=== PATIENT | male | born 1960 | race Caucasian/White ===

== ENCOUNTER 2017-09-02 17:23 | Emergency (ER) | payer OTHER ==
[~2017-09-02] VITALS: Ht 180.3 cm; Wt 106.0 kg
[~2017-09-02 17:23] MED LIST: CHOLMIS5; KETO2%T TOP; ZOLO25TA PO
[2017-09-02 17:25] VITALS: BP 177/85; PULSE 86; RESP 16; TEMP 99.9; O2SAT 95
[2017-09-02] MEDS ORDERED: ZOLO100T PO (17:36)
[2017-09-02] MEDS ORDERED: TIZA4TAB PO (17:36)
[2017-09-02] MEDS ORDERED: STATIN PO (17:36)
[2017-09-02] MEDS ORDERED: HYDR-3583 PO (17:36)
[2017-09-02] MEDS ORDERED: RESP: ALBUTEROL 2.5 MG/IPRATROPIUM 0.5 MG NEB (SCH) INH ONE (17:45)
[2017-09-02] MEDS ORDERED: predniSONE 20 MG TAB PO ONE (17:45)
--- NOTE | 2017-09-02 18:18 | PD ---
HPI Chief Complaint: Cold / Flu Symptoms Time Seen by Provider: 17:44 Travel History International Travel<30 days: No Contact w/Intl Traveler<30days: No Traveled to known affect area: No History of Present Illness HPI 57-year-old male here with cough, fever, body aches 6 days. He reports fever of 102. Symptoms are improved with OTC Motrin. Severity is moderate. He reports his friend had similar symptoms. He did receive a flu shot this year. PFSH Past Medical History Hx Anticoagulant Therapy: No Asthma: Yes Anxiety: Yes Cardiovascular Problems: Yes (CHOL) High Cholesterol: Yes Diabetes: No Diminished Hearing: No Headaches: Yes Musculoskeletal: Yes (CHRONIC BACK PAIN) Psychiatric: Yes (O.C.D.) Immunizations Current: Yes Tetanus Vaccination: > 5 Years Influenza Vaccination: Yes Past Surgical History Genitourinary Surgery: Yes (BLADDER SURGERY CHILD) Tonsillectomy: Yes Social History Alcohol Use: Yes (RARELY) Tobacco Use: No Substance Use: No Allergies-Medications (Allergen,Severity, Reaction): Coded Allergies: No Known Allergies (Verified Allergy, Mild, 09/02/17) Reported Meds & Prescriptions Reported Meds & Active Scripts Active Levaquin (Levofloxacin) 500 Mg Tablet 500 Mg PO DAILY 7 Days Ventolin Hfa 18 GM Inh (Albuterol Sulfate) 90 Mcg/Act Aer 2 Puff INH Q4-6H PRN Prednisone 20 Mg Tab 40 Mg PO DAILY Take 40 mg (2 tablets) daily for 5 days Reported [Statin] 1 Tab PO DAILY Hydrocodone-Acetaminophen 10-325 mg Tab 1 Tab PO BID PRN Tizanidine (Tizanidine HCl) 4 Mg Tab 4 Mg PO TID Zoloft (Sertraline HCl) 100 Mg Tab 200 Mg PO DAILY Review of Systems Except as stated in HPI: all other systems reviewed are Neg General / Constitutional: Positive: Fever Eyes: No: Visual changes HENT: No: Headaches Cardiovascular: No: Chest Pain or Discomfort Respiratory: Positive: Cough Gastrointestinal: No: Abdominal Pain Genitourinary: No: Dysuria Musculoskeletal: Positive: Myalgias Skin: No Rash Neurologic: No: Weakness Physical Exam Narrative GENERAL: Alert male. Nontoxic appearing. SKIN: Warm and dry. HEAD: Normocephalic. EYES: No injection or drainage. NECK: Supple, trachea midline. No JVD or lymphadenopathy. No meningismus. CARDIOVASCULAR: Regular rate and rhythm . RESPIRATORY: Breath sounds equal bilaterally. No accessory muscle use. Expiratory wheezes with rhonchi. GASTROINTESTINAL: Abdomen soft, non-tender, nondistended. MUSCULOSKELETAL: No cyanosis, or edema. BACK: Nontender without obvious deformity. No CVA tenderness. Data Data Last Documented VS Vital Signs Date Time Temp Pulse Resp B/P (MAP) Pulse Ox O2 Delivery O2 Flow Rate FiO2 09/02/17 17:36 95 Room Air 09/02/17 17:25 99.9 86 16 177/85 (115) Orders Orders Influenzae A/B Antigen (09/02/17 17:44) Chest, Single Ap (09/02/17 17:44) Albuterol-Ipratropium Neb (Duoneb Neb) (09/02/17 17:45) Prednisone (Deltasone) (09/02/17 17:45) MDM Medical Decision Making Medical Screen Exam Complete: Yes Emergency Medical Condition: Yes Differential Diagnosis Influenza, pneumonia, bronchitis Narrative Course 57-year-old male here with cough, colored sputum, rib pain, and fever 6 days. He is nontoxic appearing. His vital signs are stable. His pulse ox was 95% on room air. He has expiratory wheezes with rhonchi. He was given a dose of steroids and DuoNeb treatments. He reports symptom improvement on reexam. His appearance is improved. Chest x-ray: Bilateral lower lung atelectasis Influenza: Negative Reports he took several days of azithromycin with no improvement. He will be treated for bronchitis Diagnosis Primary Impression: Bronchitis Referrals: Primary Care Physician Additional Instructions: Stay well hydrated by drinking plenty fluids. [id number] Tylenol and Motrin as needed for pain and fever. Follow-up with her doctor. Scripts Levofloxacin (Levaquin) 500 Mg Tablet 500 MG PO DAILY for Infection for 7 Days, #7 TAB 0 Refills Prov: Rosalinda Kapoor H[employer] HEADER OPERATOR 09/02/17 Albuterol 18 GM Inh (Ventolin Hfa 18 GM Inh) 90 Mcg/Act Aer 2 PUFF INH Q4-6H Y for SHORTNESS OF BREATH, #1 INHALER 0 Refills Prov: Rosalinda Kapoor HOT HEADER OPERATOR 09/02/17 Prednisone (Prednisone) 20 Mg Tab 40 MG PO DAILY, #8 TAB 0 Refills Take 40 mg (2 tablets) daily for 5 days Prov: Rosalinda Kapoor 09/02/17 Disposition: 01 DISCHARGE HOME Condition: Stable Rosalinda Kapoor Sep 02, 2017 18:17
--- NOTE | 2017-09-02 18:33 | RADRPT ---
EXAM DATE/TIME: 09/02/2017 17:55 [facility] COMPARISON: No previous studies available for comparison. INDICATIONS : Short of breath, cough, fever, chest pains MEDICAL HISTORY : None. SURGICAL HISTORY : None. ENCOUNTER: Initial ACUITY: 1 week PAIN SCORE: 6/10 LOCATION: Bilateral chest FINDINGS: Single AP view of the chest. Minimal subsegmental atelectasis of the lung bases. The lungs are otherw ise clear. Cardiomediastinal silhouette within normal limits. No evidence of pleural effusion or pneu mothorax. CONCLUSION: Minimal bilateral lower lung zone atelectasis. No other acute cardiopulmonary dise ase identified. Iftikhar Munoz MD on September 02, 2017 at 18:30 Board Certified Radiologist. This report was verified electronically.
[2017-09-02] MEDS ORDERED: PRED20 PO (18:43)
[2017-09-02] MEDS ORDERED: VENTAER INH (18:44)
[2017-09-02] MEDS ORDERED: LEVA500T33 PO (18:44)
== END 2017-09-02 18:53 | disposition home or self-care (01) ==
LOC: PHEFT 17:23
DX: J40 Bronchitis, not specified as acute or chronic (principal); J45.909 Unspecified asthma, uncomplicated; F41.9 Anxiety disorder, unspecified; E78.00 Pure hypercholesterolemia, unspecified; Z79.899 Other long term (current) drug therapy
CPT/HCPCS: 71010; 87804; 94664; 99284; J7512